=== PATIENT | male | born 2000 | race Caucasian/White ===

== ENCOUNTER 2024-10-19 14:06 | Emergency (ER) | payer SELFPAY ==
[2024-10-19 14:16] VITALS: BP 166/100; PULSE 88; TEMP 36.7; O2SAT 98; BMI 27.9
--- OUTSIDE RECORDS SUMMARY | 2024-10-19 14:26 | XMS_ITS | Patient Health Record ---
Author Organization [facility] [facility] Address [address] [place] [address] Care Team Providers Care Retail Seasonal Specialist Name Role Phone Epifanio Dias Primary Care Provider Latonia Potter [phone] Allergies No Known Allergies Reason For Referral No Information Medications Medication SIG (Take, Route, Frequency, Duration) Notes Start Date End Date Status risperiDONE 1 MG 1 tablet at night Orally as directed; Duration: 90 days Not-Taking Propranolol HCl 40 MG 1 tablet Orally twice a day (bid) as needed (prn); Duration: 30 day(s) 05/21/2023 Not-Taking ARIPiprazole 10 MG 1 tablet Orally Once a day; Duration: 30 days start after completing 5mg dose 02/03/2023 Not-Taking ARIPiprazole 5 MG 1 tablet Orally Once a day; Duration: 5 days 02/03/2023 Not-Taking ARIPiprazole 5 MG 1 tablet Orally Once a day; Duration: 90 days 03/10/2023 Active CeleXA 20 MG 1 tablet Orally Once a day; Duration: 90 days Active ARIPiprazole 2 MG 1 tablet Orally Once a day; Duration: 90 days Active hydrOXYzine Pamoate 25 MG 1 capsule Orally three times a day (tid) as needed (prn); Duration: 30 days 05/21/2023 Active ARIPiprazole 10 MG 1 tablet Orally Once a day; Duration: 30 days start after 2 weeks of 7mg dose is complete 03/10/2023 Not-Taking Social History Tobacco Use: Social History Observation Description Date Details (start date - stop date) Never Smoker NA - NA Depression Screening (PHQ-9): Question Answer Notes Little interest or pleasure in doing things Not at all Feeling down, depressed, or hopeless Not at all Trouble falling or staying asleep, or sleeping t oo much Not at all Feeling tired or having little energy Not at all Poor appetite or overeating Not at all Feeling bad about yourself-o r that you are a failure or have let yourself or your family down Not at all Trouble concentrating on thi ngs, such as reading the newspaper or watching television Not at all Moving or speaking so slowly that other people could have noticed. Or the opposite being so fidgety or restless that you have been moving around a lot more than usual Not at all Thoughts that you would be b mckenna off , or of hurting yourself in some way Not at all Total Score 0 Tobacco Control (Standard) Question Answer Notes Tobacco use: Nonsmoker Problems Problem Type SNOMED Code ICD Code Onset Dates Problem Status W/U Status Risk Notes Problem Recurrent major depression in remission (80572642) Recurrent major depressive disorder, in partial remission (F33.41) Active confirmed Problem Autism spectrum disorder (55352883) Autism Spectrum Disorder (F84.0) Active confirmed Problem Moderate recurrent major depression (57347849) Major depressive disorder, recurrent episode, moderate with anxious distress (F33.1) Active confirmed Encounters Encounter Location Date Provider Diagnosis [facility] [address] [place] [address] 10/27/2023 [facility] [address] [place] [address] 01/20/2024 [facility] [address] [place] [address] 02/08/2024 [facility] [address] [place] [address] 02/08/2024 [facility] [address] [place] [address] 04/25/2024 Madhav Arun Major depressive disorder, recurrent episode, moderate with anxious distress F33.1 [facility] [address] [place] [address] 09/19/2024 Latonia Potter Autism Spectrum Disorder F84.0 and Major depressive disorder, recurrent episode, moderate with anxious distress F33.1 [facility] [address] [place] [address] 02/29/2024 Latonia Potter Autism Spectrum Disorder F84.0 and Major depressive disorder, recurrent episode, moderate with anxious distress F33.1 [facility] [address] [place] [address] 10/05/2024 Latonia Potter Autism Spectrum Disorder F84.0 and Major depressive disorder, recurrent episode, moderate with anxious distress F33.1 [facility] [address] [place] [address] 06/21/2024 Latonia Potter Autism Spectrum Disorder F84.0 and Major depressive disorder, recurrent episode, moderate with anxious distress F33.1 [facility] [address] [place] [address] 07/25/2024 Latonia Potter Major depressive disorder, recurrent episode, moderate with anxious distress F33.1 and Autism Spectrum Disorder F84.0 [facility] [address] [place] [address] 08/23/2024 Latonia Potter Autism Spectrum Disorder F84.0 and Major depressive disorder, recurrent episode, moderate with anxious distress F33.1 [facility] [address] [place] [place] [address] 09/12/2024 Latonia Potter Autism Spectrum Disorder F84.0 and Major depressive disorder, recurrent episode, moderate with anxious distress F33.1 [facility] [address] [place] [address] 10/07/2024 Latonia Potter Autism Spectrum Disorder F84.0 and Major depressive disorder, recurrent episode, moderate with anxious distress F33.1 [facility] [address] [place] [address] 10/12/2024 Latonia Potter Autism Spectrum Disorder F84.0 and Major depressive disorder, recurrent episode, moderate with anxious distress F33.1 [facility] [address] [place] [address] 04/25/2024 Latonia Potter Autism Spectrum Disorder F84.0 and Major depressive disorder, recurrent episode, moderate with anxious distress F33.1 [facility] [address] [place] [address] 05/24/2024 Latonia Potter Autism Spectrum Disorder F84.0 and Major depressive disorder, recurrent episode, moderate with anxious distress F33.1 [facility] [address] [place] [address] 01/20/2024 Latonia Potter Major depressive disorder, recurrent episode, moderate with anxious distress F33.1 and Autism Spectrum Disorder F84.0 [facility] [address] [place] [address] 02/08/2024 Latonia Potter Autism Spectrum Disorder F84.0 and Major depressive disorder, recurrent episode, moderate with anxious distress F33.1 [facility] [address] [facility] [place] [address] 10/27/2023 Latonia Potter Major depressive disorder, recurrent episode, moderate with anxious distress F33.1 and Autism Spectrum Disorder F84.0 [facility] [address] [place] [address] 11/17/2023 Latonia Potter Autism Spectrum Disorder F84.0 and Major depressive disorder, recurrent episode, moderate with anxious distress F33.1 [facility] [address] [place] [address] 12/07/2023 Latonia Potter Autism Spectrum Disorder F84.0 and Major depressive disorder, recurrent episode, moderate with anxious distress F33.1 [facility] [address] [place] [address] 12/21/2023 Latonia Potter Major depressive disorder, recurrent episode, moderate with anxious distress F33.1 [facility] [address] [place] [address] 01/11/2024 Latonia Potter Autism Spectrum Disorder F84.0 and Major depressive disorder, recurrent episode, moderate with anxious distress F33.1 [facility] [address] [place] [address] 10/19/2024 Latonia Potter Major depressive disorder, recurrent episode, moderate with anxious distress F33.1 and Autism Spectrum Disorder F84.0 [facility] [address] [place] [address] 01/12/2024 Epifanio Dias Major depressive disorder, recurrent episode, moderate with anxious distress F33.1 Assessments Encounter Date Diagnosis (ICD Code) Assessment Notes Treatment Notes Treatment Clinical Notes Section Notes 10/27/2023 Major depressive disorder, recurrent episode, moderate with anxious distress (ICD-10 - F33.1) 11/17/2023 Autism Spectrum Disorder (ICD-10 - F84.0) 12/07/2023 Autism Spectrum Disorder (ICD-10 - F84.0) 12/21/2023 Major depressive disorder, recurrent episode, moderate with anxious distress (ICD-10 - F33.1) 01/11/2024 Autism Spectrum Disorder (ICD-10 - F84.0) 01/12/2024 Major depressive disorder, recurrent episode, moderate with anxious distress (ICD-10 - F33.1) Informed consent obtained: YES, we discussed the diagnosis/diagnoses , the treatment options, treatment(s) recommendations vs. no treatment. We discussed risks and benefits of treatment options, treatment recommendations vs. no treatment. Currently at low risk for self harm. Denies ongoing feelings of hopelessness. Denies ongoing suicidal ideation, intent or plan in session. Pharmacological management: Alternative medication plans were discussed with the patient and or guardian. All relevant and serious adverse effects were discussed. Standard precautions and potential benefits were discussed. Patient/Guardian consented to begin medication/ continue treatment plan. questions answered satisfactorily, agreeable to treatment plan Cont current treatment Tolerating meds well, compliant Call for problems Follow up 3 months Patient/Guardian will call sooner if symptoms worsen. Patient understands to go to the ER if needed if symptoms become severe. Crisis intervention plan was discussed and agreed upon. Patient/Guardian will call 911 in case of emergency. Emergency contact information was provided to the patient/guardian. 01/20/2024 Major depressive disorder, recurrent episode, moderate with anxious distress (ICD-10 - F33.1) 02/08/2024 Autism Spectrum Disorder (ICD-10 - F84.0) 02/29/2024 Autism Spectrum Disorder (ICD-10 - F84.0) 04/25/2024 Autism Spectrum Disorder (ICD-10 - F84.0) 04/25/2024 Major depressive disorder, recurrent episode, moderate with anxious distress (ICD-10 - F33.1) 05/24/2024 Autism Spectrum Disorder (ICD-10 - F84.0) 06/21/2024 Autism Spectrum Disorder (ICD-10 - F84.0) 07/25/2024 Major depressive disorder, recurrent episode, moderate with anxious distress (ICD-10 - F33.1) 08/23/2024 Autism Spectrum Disorder (ICD-10 - F84.0) 09/12/2024 Autism Spectrum Disorder (ICD-10 - F84.0) 09/19/2024 Autism Spectrum Disorder (ICD-10 - F84.0) 10/05/2024 Autism Spectrum Disorder (ICD-10 - F84.0) 10/07/2024 Autism Spectrum Disorder (ICD-10 - F84.0) 10/12/2024 Autism Spectrum Disorder (ICD-10 - F84.0) 10/19/2024 Major depressive disorder, recurrent episode, moderate with anxious distress (ICD-10 - F33.1) 10/12/2024 Major depressive disorder, recurrent episode, moderate with anxious distress (ICD-10 - F33.1) 10/19/2024 Autism Spectrum Disorder (ICD-10 - F84.0) 10/07/2024 Major depressive disorder, recurrent episode, moderate with anxious distress (ICD-10 - F33.1) 10/05/2024 Major depressive disorder, recurrent episode, moderate with anxious distress (ICD-10 - F33.1) 09/19/2024 Major depressive disorder, recurrent episode, moderate with anxious distress (ICD-10 - F33.1) 09/12/2024 Major depressive disorder, recurrent episode, moderate with anxious distress (ICD-10 - F33.1) 08/23/2024 Major depressive disorder, recurrent episode, moderate with anxious distress (ICD-10 - F33.1) 06/21/2024 Major depressive disorder, recurrent episode, moderate with anxious distress (ICD-10 - F33.1) 07/25/2024 Autism Spectrum Disorder (ICD-10 - F84.0) 05/24/2024 Major depressive disorder, recurrent episode, moderate with anxious distress (ICD-10 - F33.1) 04/25/2024 Major depressive disorder, recurrent episode, moderate with anxious distress (ICD-10 - F33.1) 02/29/2024 Major depressive disorder, recurrent episode, moderate with anxious distress (ICD-10 - F33.1) 02/08/2024 Major depressive disorder, recurrent episode, moderate with anxious distress (ICD-10 - F33.1) 01/20/2024 Autism Spectrum Disorder (ICD-10 - F84.0) 01/11/2024 Major depressive disorder, recurrent episode, moderate with anxious distress (ICD-10 - F33.1) 12/07/2023 Major depressive disorder, recurrent episode, moderate with anxious distress (ICD-10 - F33.1) 11/17/2023 Major depressive disorder, recurrent episode, moderate with anxious distress (ICD-10 - F33.1) 10/27/2023 Autism Spectrum Disorder (ICD-10 - F84.0) Plan Of Treatment Next Appt Details Provider Name:Latonia Ashlyn rizo, 11/16/2024 05:15:00 PM, [address] [place], [address], Provider Name:Latonia rizo, 12/14/2024 05:15:00 PM, [address] [place], [address], Insurance Providers Payer Name Payer Address Payer Phone Subscriber Number Group Number Insured Name Patient Relationship to Insured Coverage Start Date Coverage End Date [employer] Primary [address] [place] [address] [id number] WILLIAM GASTON Self - patient is the insured 3 Medical (General) History Medical History History ICD Code depression anxiety Autism Surgical History Surgery Date(Month/Year) hernia repair
--- NOTE | 2024-10-19 14:27 | ECG_ITS ---
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 Measurements Intervals [place] Rate: 74 P: 44 TX: 154 QRS: 88 QRSD: 92 T: 73 QT: 370 QTc: 397 Interpretive Statements [address] elevation, probably early repolarization 9130 borderline ECG No previous ECG available for comparison Electronically Signed On 10-21-2024 6:41:54 EDT by PROSPER BRAUN M.D.
--- NOTE | 2024-10-19 14:33 | ED.GENADUL1 ---
HPI HPI - General Adult General Chief complaint: Psychiatric Symptoms Stated complaint: MENTAL HEALTH EVALUATION Time Seen by Provider: 10/19/24 14:08 Source: patient Mode of arrival: walk-in Limitations: no limitations History of Present Illness HPI narrative: Patient presents with 1 week history of depression and suicidal ideation. Patient not taking any prescription medications currently was sent by his counselor. Patient denies any physical complaints including injuries, cuts, bruises. He denies any fever, chills, nausea, vomiting, chest pain, abdominal pain, urinary bleeding, pain with urination, sore throat. Denies any illnesses. Denies recreational substances including smoking and alcohol. Severity nothing improves symptoms nothing worsens symptoms. Onset (ago): week(s) (one) Severity: moderate Associated symptoms: Reports denies other symptoms Treatments prior to arrival: Reports none Related Data Home Medications ?Medication ?Instructions ?Recorded ?Confirmed No Known Home Medications 10/19/24 10/19/24 Allergies Allergy/AdvReac Type Severity Reaction Status Date / Time No Known Drug Allergies Allergy Verified 10/19/24 14:16 Opioid HPI Opioid Management Most Recent Opioid Data: Ur Phencyclidine Scrn, (NEGATIVE) Negative Today, 14:25 Review of Systems ROS Status of ROS 10 or more systems reviewed and unremarkable except as noted in history and below Constitutional Denies: fever or chills Eyes Denies: change in vision Ears, nose, mouth, and throat Denies: throat pain Cardiovascular Denies: chest pain Respiratory Denies: cough Gastrointestinal Denies: abdominal pain Genitourinary Denies: painful urination, urinary frequency or blood in urine Musculoskeletal Denies: back pain Neurological Denies: weakness in extremities Psychiatric Reports: suicidal ideation PFSH PFSH Social History Little interest or pleasure in doing things: more than half the days Feeling down, depressed, or hopeless: more than half the days Exam Constitutional Vital Signs, click to edit/add: Last Vital Signs Temp 98.0 F 10/19/24 14:16 Pulse 88 10/19/24 14:16 Resp 18 10/19/24 14:16 BP 166/100 H 10/19/24 14:16 Pulse Ox 98 10/19/24 14:16 O2 Del Method Room Air 10/19/24 14:16 Documenting provider has reviewed patient's vital signs: yes Common normals: no apparent distress Exam limitations: no altered mental status General appearance: cooperative, comfortable and well kempt; not in distress Orientation/consciousness: Yes awake HENMT Common normals: normocephalic Eye Common normals: PERRL, EOMs intact bilaterally and conjunctivae normal General eye: normal appearance of both eyes Neck & C-Spine Common normals: full ROM and supple Respiratory Common normals: normal respiratory effort and clear to auscultation bilaterally Effort & inspection: able to speak in complete sentences Cardio Common normals: regular rate, regular rhythm, S1 normal heart sound and S2 normal heart sound GI Common normals: Normal to inspection, nondistended, normoactive bowel sounds present Inspection: normal to inspection Auscultation: normoactive bowel sounds Back & Pelvis Common normals: thoraco-lumbar ROM normal Extremity Common normals: normal to inspection and full ROM Neuro Common normals: oriented x3 and gait normal Sensorium/orientation: awake and alert Psych Common normals: mental status grossly normal and thought process normal Appearance: grossly normal Attitude: calm and guarded; not aggressive Activity/motor behavior: no appropriate eye contact Speech: normal speech Course Vital Signs Vital signs: Vital Signs Temperature 98.0 F 10/19/24 14:16 Pulse Rate 88 10/19/24 14:16 Respiratory Rate 18 10/19/24 14:16 Blood Pressure 166/100 H 10/19/24 14:16 Pulse Oximetry 98 10/19/24 14:16 Oxygen Delivery Method Room Air 10/19/24 14:16 Temperature 98.0 F 10/19/24 14:16 Pulse Rate 88 10/19/24 14:16 Respiratory Rate 18 10/19/24 14:16 Blood Pressure 166/100 H 10/19/24 14:16 Pulse Oximetry 98 10/19/24 14:16 Oxygen Delivery Method Room Air 10/19/24 14:16 Medical Decision Making MDM Narrative Medical decision making narrative: Patient presents from counselor for behavioral health evaluation he has had 1 week history of suicidal ideation when asked if there was a inciting factor he did mention there was one but did not elaborate. Will have behavioral health evaluation patient currently wants inpatient admission per nursing patient voluntary. We will complete medical clearance and then follow-up behavioral health evaluation next. Discussed plan of care patient is agreeable plan of care. Pt Medically stable for Behavioral health exam [facility] has evaluated patient in emergency room via tele. They state patient has appointment tomorrow to restart medications they have a safety plan they have gotten collateral and consulted patient's family family is going to pick him up. Patient and family agreeable to discharge with follow-up plan. Patient denies any plan to harm himself or his family by harming himself. They note the patient is high functioning autistic. Will disposition home discussed with attending. Lab Data Lab results reviewed: Yes I reviewed the patient's lab results Labs: Lab Results 10/19/24 10/19/24 Range/Units 14:25 14:35 WBC 8.2 (4.0-11.0) 10^3/uL RBC 5.21 (4.70-6.10) 10^6/uL Hgb 16.5 (14.0-18.0) g/dL Hct 46.6 (42.0-54.0) % MCV 89.4 (80.0-94.0) fL MCH 31.7 (25.9-34.0) pg MCHC 35.4 H (29.9-35.2) g/dL RDW 12.0 (11.0-15.0) % Plt Count 266 (150-450) 10^3/uL MPV 11.0 (9.5-13.5) fL Neut % (Auto) 52.9 (43.0-75.0) % Lymph % (Auto) 33.0 (20.5-60.0) % Antelope % (Auto) 7.7 (1.7-12.0) % Eos % (Auto) 4.4 (0.9-7.0) % Baso % (Auto) 1.8 (0.2-2.0) % Neut # (Auto) 4.3 (1.4-6.5) 10^3/uL Lymph # (Auto) 2.7 (1.2-3.8) 10^3/uL Antelope # (Auto) 0.6 (0.3-0.8) 10^3/uL Eos # (Auto) 0.4 (0.0-0.7) 10^3/uL Baso # (Auto) 0.2 H (0.0-0.1) 10^3/uL Abs Immat Gran (auto) 0.02 (0.00-0.03) 10^3/uL Imm/Tot Granulo (auto) 0.2 (0.0-0.5) % Sodium 141 (136-145) mmol/L Potassium 3.8 (3.5-5.1) mmol/L Chloride 102 (98-107) mmol/L Carbon Dioxide 30.4 (21.0-32.0) mmol/L Anion Gap 12.4 BUN 17.0 (7.0-18.0) mg/dL Creatinine 0.94 (0.70-1.30) mg/dL Est GFR ( Amer) >60 (>=60 mL/min/1.73m^2) Est GFR (Non-Af Amer) >60 (>=60 mL/min/1.73m^2) BUN/Creatinine Ratio 18.1 Glucose 80 (74-106) mg/dL Calcium 9.7 (8.5-10.1) mg/dL Total Bilirubin 2.1 H (0.2-1.0) mg/dL AST 34 (15-37) U/L ALT 56 (16-63) U/L Alkaline Phosphatase 110 (46-116) U/L Total Protein 8.3 H (6.4-8.2) g/dL Albumin 4.2 (3.4-5.0) g/dL Globulin 4.1 g/dL Albumin/Globulin Ratio 1.0 Urine Color Yellow (YELLOW) Urine Clarity Clear (CLEAR) Urine pH 6.0 (5.0-9.0) Ur Specific [place] 1.025 (1.005-1.025) Urine Protein Negative (NEG/TRACE) mg/dL Urine Glucose (UA) Negative (NEGATIVE) mg/dL Urine Ketones Negative (NEGATIVE) mg/dL Urine Occult Blood Negative (NEGATIVE) Urine Nitrite Negative (NEGATIVE) Urine Bilirubin Negative (NEGATIVE) Urine Urobilinogen 0.2 (0.2-1.0) EU/dL Ur Leukocyte Esterase Negative (NEGATIVE) Urine Opiates Screen Negative (NEGATIVE) Ur Buprenorphine Scrn Negative (NEGATIVE) Ur Oxycodone Screen Negative (NEGATIVE) Urine Methadone Screen Negative (NEGATIVE) Ur Barbiturates Screen Negative (NEGATIVE) U Tricyclic Antidepress Negative (NEGATIVE) Ur Phencyclidine Scrn Negative (NEGATIVE) Ur Amphetamines Screen Negative (NEGATIVE) U Methamphetamines Scrn Negative (NEGATIVE) U Benzodiazepines Scrn Negative (NEGATIVE) Urine Cocaine Screen Negative (NEGATIVE) U Cannabinoids Screen Negative (NEGATIVE) Ethanol Quant <3 mg/dL ECG Data Attestation: I personally reviewed and interpreted this ECG as follows: Interpretation: my int. normal sinus rhythm rate 74 bpm MT interval 154 ms QRS 92 ms QTc 397 ms early repolarization Discharge Plan Discharge Chief Complaint: Psychiatric Symptoms Clinical Impression: Depression Patient Disposition: Home, Self-Care Time of Disposition Decision: 17:14 Condition: Good Mode of Transportation: Private Vehicle Prescriptions / Home Meds: No Action No Known Home Medications Print Language: Cymraes Instructions: Depression (ED) Additional Instructions: Follow up With your [facility] counselor tomorrow as scheduled. Return to ER if any symptoms worsen or new symptoms develop. Follow your safety plan. Referrals: Cathy Dubon MD [Primary Care Provider, Family Practice] - 1 week Discharge Date/Time: 10/19/24 17:37
[2024-10-19 14:46] LABS: Glucose Urine UA NEGATIVE (NEGATIVE)
[2024-10-19 14:46] LABS: Hematocrit 46.6 % (42.0-54.0); Hemoglobin 16.5 g/dL (14.0-18.0); Immature Granulocytes Abs Auto 0.02 10^3/uL (0.00-0.03); Immature Granulocytes Pct Auto 0.2 % (0.0-0.5); Lymphocytes Absolute Auto 2.7 10^3/uL (1.2-3.8); Mean Corpuscular HGB Conc 35.4 g/dL (29.9-35.2); Mean Corpuscular Hemoglobin 31.7 pg (25.9-34.0); Mean Corpuscular Volume 89.4 fL (80.0-94.0); Platelet Count 266 10^3/uL (150-450); Red Blood Count 5.21 10^6/uL (4.70-6.10); White Blood Count 8.2 10^3/uL (4.0-11.0)
[2024-10-19 14:59] LABS: Alanine Aminotransferase 56 U/L (16-63); Albumin Globulin Ratio 1.0; Albumin Level 4.2 g/dL (3.4-5.0); Alkaline Phosphatase 110 U/L (46-116); Anion Gap 12.4; Aspartate Amino Transferase 34 U/L (15-37); Blood Urea Nitrogen 17.0 mg/dL (7.0-18.0); Calcium 9.7 mg/dL (8.5-10.1); Carbon Dioxide 30.4 mmol/L (21.0-32.0); Chloride 102 mmol/L (98-107); Estimated GFR (African America >60 (>=60 mL/min/1.73m^2); Estimated GFR (Non-African Ame >60 (>=60 mL/min/1.73m^2); Globulin 4.1 g/dL; Glucose 80 mg/dL (74-106); Potassium 3.8 mmol/L (3.5-5.1); Sodium 141 mmol/L (136-145); Total Protein 8.3 g/dL (6.4-8.2)
[2024-10-19 15:08] LABS: Cannabinoid Screen Urine NEGATIVE (NEGATIVE); Methamphetamines Screen Urine NEGATIVE (NEGATIVE); Tricyclic Antidepressant Urine NEGATIVE (NEGATIVE)
--- NOTE | 2024-10-19 17:15 | PC.NURSE ---
per Ellen, pt will be picked up by parents today and go home with safety plan
== END 2024-10-19 17:37 | disposition home or self-care (01) ==
PROVIDERS: Physician Assistant; Emergency Provider Emergency Medicine; PCP Family Medicine
DX: F32.A Depression, unspecified (principal); F84.0 Autistic disorder
CPT/HCPCS: 36415; 80053; 80307; 80320; 81003; 85025; 93005; 99285

== ENCOUNTER 2025-01-19 13:55 | Outpatient (OUT) | payer BC, SELFPAY ==
[2025-01-19 14:32] LABS: Hematocrit 48.8 % (42.0-54.0); Hemoglobin 17.1 g/dL (14.0-18.0); Immature Granulocytes Abs Auto 0.01 10^3/uL (0.00-0.03); Immature Granulocytes Pct Auto 0.2 % (0.0-0.5); Lymphocytes Absolute Auto 2.1 10^3/uL (1.2-3.8); Mean Corpuscular HGB Conc 35.0 g/dL (29.9-35.2); Mean Corpuscular Hemoglobin 31.8 pg (25.9-34.0); Mean Corpuscular Volume 90.9 fL (80.0-94.0); Platelet Count 249 10^3/uL (150-450); Red Blood Count 5.37 10^6/uL (4.70-6.10); White Blood Count 6.0 10^3/uL (4.0-11.0)
[2025-01-19 15:12] LABS: Anion Gap 13.5; Blood Urea Nitrogen 16.0 mg/dL (7.0-18.0); Calcium 9.6 mg/dL (8.5-10.1); Carbon Dioxide 30.0 mmol/L (21.0-32.0); Chloride 102 mmol/L (98-107); Estimated GFR (African America >60 (>=60 mL/min/1.73m^2); Estimated GFR (Non-African Ame >60 (>=60 mL/min/1.73m^2); Glucose 92 mg/dL (74-106); Potassium 4.5 mmol/L (3.5-5.1); Sodium 141 mmol/L (136-145); Thyroid Stimulating Hormone 0.672 uIU/mL (0.358-3.740)
[2025-01-19 15:56] LABS: Ferritin 144.0 ng/mL (26.0-388.0); Folate 7.80 ng/mL (8.60-58.90)
[2025-01-20 04:07] LABS: Vitamin B12 547 pg/mL (232-1245)
== END 2025-01-19 13:56 | disposition home or self-care (01) ==
LOC: LAB 13:57
PROVIDERS: PCP Family Medicine; Visit Provider Family Medicine
DX: R53.83 Other fatigue (principal)
CPT/HCPCS: 36415; 80048; 82306; 82607; 82728; 82746; 84439; 84443; 85025